=== PATIENT | male | born 1960 | race Asian ===

== ENCOUNTER 2017-07-21 09:31 | Outpatient (CLI) | payer OTHER ==
[~2017-07-21 09:31] MED LIST: ZESTRIL5 MG
== END 2017-07-21 09:57 | disposition home or self-care (01) ==
LOC: NUCLEAR 09:31
DX: I25.111 Atherosclerotic heart disease of native coronary artery with angina pectoris with documented spasm (principal); I21.29 ST elevation (STEMI) myocardial infarction involving other sites